=== PATIENT | female | born 1990 ===

== ENCOUNTER 2021-01-29 12:07 | Emergency (ER) | payer OTHER ==
[2021-01-29 12:25] VITALS: BP 117/76
--- NOTE | 2021-01-29 12:48 | Emergency Department Report ---
ED General Adult HPI - General Chief complaint: Skin/Abscess/Foreign Body Stated complaint: INFECTION RT BREAST Time Seen by Provider: 01/29/21 12:29 Source: patient Mode of arrival: Ambulatory Limitations: No Limitations - History of Present Illness Initial comments: 30-year-old -[place] female patient presents with complaints of purulent drainage above the right nipple starting 2 days ago. Patient states since having her breast surgery a year ago, she has had 2-3 recurrent skin infections. She states there is minimal pain and redness and denies any fever/chills/sweats. No other past medical history per patient. -: Sudden - Related Data Previous Rx's Medication Instructions Recorded Last Taken Type Mupirocin [Bactroban 2% OINT] 1 applic TP TID 7 Days #1 tube 01/29/21 Unknown Rx Sulfamethoxazole/Trimethoprim 1 each PO BID 10 Days #20 tablet 01/29/21 Unknown Rx [Bactrim DS TAB] Allergies Allergy/AdvReac Type Severity Reaction Status Date / Time No Known Allergies Allergy Verified 01/29/21 12:23 ED Review of Systems ROS: Stated complaint: INFECTION RT BREAST Other details as noted in HPI Constitutional: denies: chills, fever, malaise Skin: as per HPI Neurological: denies: headache Hematological/Lymphatic: denies: swollen glands ED Past Medical Hx - Past Medical History Previous Medical History?: No - Surgical History Past Surgical History?: No - Medications Home Medications: Home Medications Medication Instructions Recorded Confirmed Last Taken Type Mupirocin [Bactroban 2% OINT] 1 applic TP TID 7 Days #1 tube 01/29/21 Unknown Rx Sulfamethoxazole/Trimethoprim 1 each PO BID 10 Days #20 tablet 01/29/21 Unknown Rx [Bactrim DS TAB] ED Physical Exam - General Limitations: No Limitations General appearance: alert, in no apparent distress - Head Head exam: Present: atraumatic, normocephalic - Eye Eye exam: Present: normal appearance - Respiratory Respiratory exam: Present: normal lung sounds bilaterally. Absent: respiratory distress - Cardiovascular Cardiovascular Exam: Present: regular rate - Neurological Exam Neurological exam: Present: alert, oriented X3 - Psychiatric Psychiatric exam: Present: normal affect, normal mood - Skin Skin exam: Present: warm, dry, intact, other (Minimal erythema noted approximately at 12:00 just above the right nipple without significant tenderness to palpation, induration, fluctuance, or cellulitic/mastitis changes noted). Absent: rash ED Course Vital Signs 01/29/21 12:24 Temperature 99.5 F Pulse Rate 71 Respiratory 18 Rate Blood Pressure 117/76 O2 Sat by Pulse 95 Oximetry ED Medical Decision Making - Medical Decision Making 30-year-old -[place] female patient presents with complaints of purulent drainage above the right nipple starting 2 days ago. Patient states since having her breast surgery a year ago, she has had 2-3 recurrent skin infections. She states there is minimal pain and redness and denies any fever/chills/sweats. No other past medical history per patient. Mild erythema noted around 12:00 of the right nipple without induration or abscess or mastitis noted. Topical and oral antibiotics given. Recommend follow-up with PCP in 3 to 5 days. She is well-appearing, her vitals are normal, she is stable for discharge home. Discussed in detail signs and symptoms that should prompt immediate return to the ED with patient verbalizes understanding peer Critical care attestation.: If time is entered above; I have spent that time in minutes in the direct care of this critically ill patient, excluding procedure time. ED Disposition Clinical Impression: Breast infection Disposition: HOME / SELF CARE / HOMELESS Is pt being admited?: No Condition: Stable Instructions: Cellulitis, Adult Prescriptions: Sulfamethoxazole/Trimethoprim [Bactrim DS TAB] 1 each PO BID 10 Days #20 tablet Mupirocin [Bactroban 2% OINT] 1 applic TP TID 7 Days #1 tube Referrals: [facility] [Provider Group] - 3-5 Days
== END 2021-01-29 13:14 | disposition home or self-care (01) ==
LOC: ED 12:07
DX: N61.0 Mastitis without abscess (principal)
CPT/HCPCS: 99281